=== PATIENT | male | born 1970 | race Caucasian/White ===

== ENCOUNTER 2017-07-30 04:57 | Inpatient (IN) | payer OTHER, MEDICARE ==
[2017-07-30] VITALS (13 sets, daily range): BP systolic 129–162; BP diastolic 69–94; PULSE 82–100; RESP 12–22; TEMP 97.7–99.3; O2SAT 94–100
[2017-07-30] MEDS ORDERED: DIPHTH/TETANUS/ACEL PERTUSSIS (BOOSTER) 0.5 ML VIAL/PFS IM ONE (05:03)
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
[2017-07-30 05:26] LABS: AUTOMATED NEUTROPHIL # 7.7 TH/MM3 (1.8-7.7); BASOPHIL # 0.1 TH/MM3 (0-0.2); BASOPHIL % 0.5 % (0.0-2.0); EOSINOPHIL # 0.3 TH/MM3 (0-0.4); EOSINOPHIL % 2.2 % (0.0-4.0); HEMATOCRIT 46.2 % (39.0-51.0); HEMOGLOBIN 16.2 GM/DL (13.0-17.0); LYMPH % 34.4 % (9.0-44.0); LYMPHOCYTE # 4.8 TH/MM3 (1.0-4.8); MEAN CORPUSCULAR HEMOGLOBIN 32.3 PG (27.0-34.0); MEAN CORPUSCULAR HGB CONC 35.1 % (32.0-36.0); MEAN PLATELET VOLUME 7.7 FL (7.0-11.0); MONO % 7.7 % (0.0-8.0); MONOCYTE # 1.1 TH/MM3 (0-0.9); NEUT % 55.2 % (16.0-70.0); PLATELET COUNT 298 TH/MM3 (150-450); RED BLOOD COUNT 5.02 MIL/MM3 (4.50-5.90); RED CELL DISTRIBUTION WIDTH 13.1 % (11.6-17.2); WHITE BLOOD COUNT 13.9 TH/MM3 (4.0-11.0)
[2017-07-30] MEDS ORDERED: IOHEXOL 350 MG/ML 10 ML VIAL (for RAD DIAG) IVCONTRAST ONE (05:28)
[2017-07-30] MEDS ORDERED: Post-op Orders (for Pharmacy) XX ONE (05:30)
[2017-07-30] MEDS ORDERED: NALOXONE HCL 0.4 MG/ML AMP IV PUSH PRN (05:30)
[2017-07-30] MEDS ORDERED: SODIUM CHLORIDE 0.9% FLUSH 10 ML FLUSH IV FLUSH PRN (05:30)
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
[2017-07-30 05:40] LABS: PROTHROMBIN TIME - PATIENT 10.6 SEC (9.8-11.6)
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
[2017-07-30] MEDS: SODIUM CHLOR 0.9% 1000 ML INJ 1,000 ML IV SCH ×2 (05:47→14:28)
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
[2017-07-30] MEDS ORDERED: LACTULOSE SYRUP 20 GM/30 ML CUP PO PRN (06:45)
[2017-07-30] MEDS ORDERED: MORPHINE SULFATE 4 MG/ML INJ IV PUSH PRN (06:45)
[2017-07-30] MEDS ORDERED: METHOCARBAMOL 500 MG TAB PO SCH (07:00)
[2017-07-30] MEDS: RESP: ALBUTEROL 2.5 MG/IPRATROPIUM 0.5 MG NEB (SCH) NEB ×4 (07:36→20:13)
[2017-07-30] MEDS: ACETAMINOPHEN 1000 MG/100 ML 100 ML IV SCH ×3 (07:43→20:19)
[2017-07-30] MEDS: DOCUSATE SODIUM 50 MG/SENNA 8.6 MG TAB PO SCH ×2 (07:44→20:19)
[2017-07-30] MEDS: SODIUM CHLORIDE 0.9% FLUSH 10 ML FLUSH IV FLUSH SCH ×2 (07:44→20:57)
[2017-07-30] MEDS: FAMOTIDINE 20 MG/2 ML VIAL IV PUSH SCH ×2 (07:44→20:17)
[2017-07-30] MEDS: POLYETHYLENE GLYCOL 17 GM PKG PO SCH (07:44)
[2017-07-30] MEDS: levETIRAcetam INJ 500 MG in SODIUM CHLORIDE 0.9% INJ 100 ML IV SCH ×2 (07:44→20:19)
[2017-07-30] MEDS ORDERED: LIDOCAINE HCL 5% PATCH TD SCH (09:00)
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
[2017-07-30] MEDS ORDERED: LIDOCAINE HCL 5% PATCH T-DERMAL ONE (11:30)
[2017-07-30] MEDS: METOPROLOL TARTRATE 5 MG/5 ML VIAL IV PUSH SCH ×3 (11:35→23:27)
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
[2017-07-30] MEDS: METHOCARBAMOL INJ 1,000 MG in SODIUM CHLOR 0.9% 250 ML INJ 240 ML IV SCH ×2 (14:28→20:19)
[2017-07-30] MEDS: REMOVE OLD PATCH T-DERMAL SCH (20:20)
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
[2017-07-31] VITALS (14 sets, daily range): BP systolic 124–143; BP diastolic 63–79; PULSE 78–103; RESP 8–20; TEMP 98.6–99.6; O2SAT 93–98
[2017-07-31] MEDS: SODIUM CHLOR 0.9% 1000 ML INJ 1,000 ML IV SCH ×3 (00:55→21:21)
[2017-07-31] MEDS: ACETAMINOPHEN 1000 MG/100 ML 100 ML IV SCH (00:55)
[2017-07-31] MEDS: METOPROLOL TARTRATE 5 MG/5 ML VIAL IV PUSH SCH ×4 (05:18→23:53)
[2017-07-31] MEDS: METHOCARBAMOL INJ 1,000 MG in SODIUM CHLOR 0.9% 250 ML INJ 240 ML IV SCH (05:19)
[2017-07-31 05:58] LABS: BASOPHIL # 0.3 TH/MM3 (0-0.2); EOSINOPHIL # 0.1 TH/MM3 (0-0.4); EOSINOPHIL % 0.4 % (0.0-4.0); HEMATOCRIT 42.7 % (39.0-51.0); HEMOGLOBIN 14.9 GM/DL (13.0-17.0); LYMPH % 11.7 % (9.0-44.0); LYMPHOCYTE # 1.5 TH/MM3 (1.0-4.8); MEAN CELL VOLUME 93.2 FL (80.0-100.0); MEAN CORPUSCULAR HEMOGLOBIN 32.4 PG (27.0-34.0); MEAN CORPUSCULAR HGB CONC 34.8 % (32.0-36.0); MEAN PLATELET VOLUME 7.9 FL (7.0-11.0); MONO % 9.7 % (0.0-8.0); MONOCYTE # 1.3 TH/MM3 (0-0.9); NEUT % 76.2 % (16.0-70.0); PLATELET COUNT 223 TH/MM3 (150-450); RED BLOOD COUNT 4.58 MIL/MM3 (4.50-5.90); RED CELL DISTRIBUTION WIDTH 13.3 % (11.6-17.2); WHITE BLOOD COUNT 13.2 TH/MM3 (4.0-11.0)
[2017-07-31 06:08] LABS: BICARBONATE 27.1 MEQ/L (21.0-32.0); CALCIUM 7.6 MG/DL (8.5-10.1); CREATININE 0.76 MG/DL (0.60-1.30)
[2017-07-31] MEDS: RESP: ALBUTEROL 2.5 MG/IPRATROPIUM 0.5 MG NEB (SCH) NEB ×4 (07:35→20:27)
[2017-07-31] MEDS: DOCUSATE SODIUM 50 MG/SENNA 8.6 MG TAB PO SCH ×2 (09:00→20:19)
[2017-07-31] MEDS: SODIUM CHLORIDE 0.9% FLUSH 10 ML FLUSH IV FLUSH SCH ×2 (09:00→20:19)
[2017-07-31] MEDS: POLYETHYLENE GLYCOL 17 GM PKG PO SCH (09:00)
[2017-07-31] MEDS: FAMOTIDINE 20 MG/2 ML VIAL IV PUSH SCH ×2 (09:03→20:18)
[2017-07-31] MEDS: levETIRAcetam INJ 500 MG in SODIUM CHLORIDE 0.9% INJ 100 ML IV SCH ×2 (09:04→20:19)
[2017-07-31] MEDS ORDERED: PNEUMOCOCCAL POLYVALENT INJ 25 MCG/0.5 ML SYR IM ONE (10:00)
[2017-07-31] MEDS ORDERED: INFLUENZA VIRUS VACCINE (QUADRIVALENT) 0.5 ML SYR IM ONE (10:00)
[2017-07-31] MEDS ORDERED: oxyCODONE/ACETAMINOPHEN 10 MG/325 MG TAB PO PRN (10:30)
[2017-07-31] MEDS: ONDANSETRON HCL 4 MG/2 ML VIAL IV PUSH PRN (11:05)
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
[2017-07-31] MEDS: oxyCODONE/ACETAMINOPHEN 5 MG/325 MG TAB PO PRN (13:24)
[2017-07-31] MEDS: METHOCARBAMOL 500 MG TAB PO SCH ×2 (14:15→20:19)
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
[2017-07-31] MEDS: REMOVE OLD PATCH T-DERMAL SCH (21:00)
[2017-08-01] VITALS (13 sets, daily range): BP systolic 104–143; BP diastolic 56–76; PULSE 68–101; RESP 11–23; TEMP 98.3–98.7; O2SAT 93–98
[2017-08-01] MEDS: MORPHINE SULFATE 2 MG/ML INJ IV PUSH PRN ×2 (04:37→10:56)
[2017-08-01] MEDS: ONDANSETRON HCL 4 MG/2 ML VIAL IV PUSH PRN ×2 (04:38→10:56)
--- NOTE | 2017-08-01 04:55 | RADRPT ---
EXAM DATE/TIME: 08/01/2017 04:06 [facility] COMPARISON: CT BRAIN W/O CONTRAST, July 30, 2017, 12:11. INDICATIONS : Follow up traumatic brain injury. RADIATION DOSE: 56.35 CTDIvol (mGy) MEDICAL HISTORY : Non-responsive. SURGICAL HISTORY : Non-responsive. ENCOUNTER: Subsequent ACUITY: 2 days PAIN SCALE: Non-responsive LOCATION: cranial TECHNIQUE: Multiple contiguous axial images were obtained of the head. Using automated exposure control and adj ustment of the mA and/or kV according to patient size, radiation dose was kept as low as reasonably a chievable to obtain optimal diagnostic quality images. DICOM format image data is available electro nically for review and comparison. FINDINGS: The examination is stable. Small one subarachnoid hemorrhage is seen involving the right parietal lob e. Small volume of intraventricular blood on the left atria the lateral ventricle. Hemorrhagic contus ion within the left temporal lobe is stable as well. There is very slight increase in the surrounding edema. No new sources of hemorrhage. No midline shift or herniation. CSF density remains within the suprasellar cistern. Ventricles are normal in size. The fracture through the left mastoid air cells a gain noted. CONCLUSION: 1. The only interval change has been a slight increase in the edema involving the hemorrhagic contusi on involving the left temporal lobe. Otherwise the areas of hemorrhage are stable without signs of mi dline shift or herniation. No new sites of hemorrhage. Erick Vázquez Jr., MD on August 01, 2017 at 4:50 Board Certified Radiologist. This report was verified electronically.
[2017-08-01] MEDS: METOPROLOL TARTRATE 5 MG/5 ML VIAL IV PUSH SCH (06:00)
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
[2017-08-01] MEDS: METHOCARBAMOL 500 MG TAB PO SCH ×3 (06:32→21:18)
[2017-08-01 07:22] LABS: AUTOMATED NEUTROPHIL # 9.8 TH/MM3 (1.8-7.7); BASOPHIL # 0.1 TH/MM3 (0-0.2); BASOPHIL % 0.4 % (0.0-2.0); EOSINOPHIL # 0.1 TH/MM3 (0-0.4); EOSINOPHIL % 0.8 % (0.0-4.0); HEMATOCRIT 41.4 % (39.0-51.0); HEMOGLOBIN 14.6 GM/DL (13.0-17.0); LYMPH % 11.6 % (9.0-44.0); LYMPHOCYTE # 1.5 TH/MM3 (1.0-4.8); MEAN CELL VOLUME 93.7 FL (80.0-100.0); MEAN CORPUSCULAR HEMOGLOBIN 32.9 PG (27.0-34.0); MEAN CORPUSCULAR HGB CONC 35.1 % (32.0-36.0); MEAN PLATELET VOLUME 7.9 FL (7.0-11.0); MONO % 8.9 % (0.0-8.0); MONOCYTE # 1.1 TH/MM3 (0-0.9); NEUT % 78.3 % (16.0-70.0); PLATELET COUNT 225 TH/MM3 (150-450); RED BLOOD COUNT 4.42 MIL/MM3 (4.50-5.90); RED CELL DISTRIBUTION WIDTH 13.4 % (11.6-17.2); WHITE BLOOD COUNT 12.5 TH/MM3 (4.0-11.0)
[2017-08-01 08:01] LABS: ALBUMIN 3.3 GM/DL (3.4-5.0); ALT (GPT) 22 U/L (12-78); AST (GOT) 22 U/L (15-37); BICARBONATE 26.1 MEQ/L (21.0-32.0); CALCIUM 7.7 MG/DL (8.5-10.1); CHLORIDE 103 MEQ/L (98-107); CREATININE 0.83 MG/DL (0.60-1.30); GLOMERULAR FILTRATION RATE 100 ML/MIN (>89); GLUCOSE,RANDOM 105 MG/DL (74-106); SODIUM (NA) 139 MEQ/L (136-145)
[2017-08-01 08:09] LABS: ALKALINE PHOSPHATASE 56 U/L (45-117); BLOOD UREA NITROGEN 9 MG/DL (7-18); TOTAL BILIRUBIN ADULT 0.8 MG/DL (0.2-1.0); TOTAL PROTEIN 6.7 GM/DL (6.4-8.2)
[2017-08-01] MEDS: levETIRAcetam INJ 500 MG in SODIUM CHLORIDE 0.9% INJ 100 ML IV SCH (08:44)
[2017-08-01] MEDS: SODIUM CHLORIDE 0.9% FLUSH 10 ML FLUSH IV FLUSH SCH ×2 (08:45→21:19)
[2017-08-01] MEDS: FAMOTIDINE 20 MG TAB PO SCH ×2 (09:00→21:18)
[2017-08-01] MEDS: LACTULOSE SYRUP 20 GM/30 ML CUP PO SCH (09:00)
[2017-08-01] MEDS: POLYETHYLENE GLYCOL 17 GM PKG PO SCH (09:00)
[2017-08-01] MEDS: DOCUSATE SODIUM 50 MG/SENNA 8.6 MG TAB PO SCH ×2 (09:00→21:18)
[2017-08-01] MEDS: RESP: ALBUTEROL 2.5 MG/IPRATROPIUM 0.5 MG NEB (SCH) NEB ×4 (09:33→19:34)
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
[2017-08-01] MEDS: PROPRANOLOL HCL 10 MG TAB PO SCH ×2 (14:00→21:18)
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
[2017-08-01] MEDS: oxyCODONE/ACETAMINOPHEN 5 MG/325 MG TAB PO PRN (17:13)
[2017-08-01] MEDS: REMOVE OLD PATCH T-DERMAL SCH (21:00)
[2017-08-01] MEDS: levETIRAcetam 500 MG TAB PO SCH (21:18)
[2017-08-02] VITALS: BP 150/61; PULSE 90; RESP 18; TEMP 99.3; O2SAT 93
[2017-08-02 04:00] VITALS: BP 140/64; PULSE 85; RESP 18; TEMP 98.6; O2SAT 94
[2017-08-02] MEDS: METHOCARBAMOL 500 MG TAB PO SCH ×3 (06:08→21:13)
[2017-08-02] MEDS: PROPRANOLOL HCL 10 MG TAB PO SCH ×3 (06:09→21:13)
[2017-08-02 06:49] LABS: AUTOMATED NEUTROPHIL # 10.9 TH/MM3 (1.8-7.7); BASOPHIL # 0.1 TH/MM3 (0-0.2); BASOPHIL % 0.5 % (0.0-2.0); EOSINOPHIL # 0.5 TH/MM3 (0-0.4); EOSINOPHIL % 3.4 % (0.0-4.0); HEMOGLOBIN 15.4 GM/DL (13.0-17.0); LYMPHOCYTE # 1.3 TH/MM3 (1.0-4.8); MEAN CELL VOLUME 92.5 FL (80.0-100.0); MEAN CORPUSCULAR HEMOGLOBIN 32.4 PG (27.0-34.0); MEAN CORPUSCULAR HGB CONC 35.1 % (32.0-36.0); MEAN PLATELET VOLUME 8.2 FL (7.0-11.0); MONO % 9.1 % (0.0-8.0); MONOCYTE # 1.3 TH/MM3 (0-0.9); PLATELET COUNT 243 TH/MM3 (150-450); RED BLOOD COUNT 4.76 MIL/MM3 (4.50-5.90); RED CELL DISTRIBUTION WIDTH 13.3 % (11.6-17.2)
[2017-08-02 07:25] LABS: ALBUMIN 3.3 GM/DL (3.4-5.0); ALKALINE PHOSPHATASE 57 U/L (45-117); ALT (GPT) 26 U/L (12-78); AST (GOT) 29 U/L (15-37); BLOOD UREA NITROGEN 12 MG/DL (7-18); CHLORIDE 102 MEQ/L (98-107); CREATININE 0.81 MG/DL (0.60-1.30); GLOMERULAR FILTRATION RATE 103 ML/MIN (>89); GLUCOSE,RANDOM 104 MG/DL (74-106); SODIUM (NA) 138 MEQ/L (136-145); TOTAL BILIRUBIN ADULT 0.7 MG/DL (0.2-1.0); TOTAL PROTEIN 7.4 GM/DL (6.4-8.2)
--- NOTE | 2017-08-02 07:27 | RADRPT ---
EXAM DATE/TIME: 08/02/2017 06:19 [facility] COMPARISON: CHEST SINGLE AP, August 01, 2017, 5:14. INDICATIONS : Left chest pain. Trauma. MEDICAL HISTORY : None. SURGICAL HISTORY : None. ENCOUNTER: Initial ACUITY: 1 day PAIN SCORE: 6/10 LOCATION: Left chest FINDINGS: Lung bases are hypoaerated with some mild bibasilar atelectasis. Heart and mediastinal structures are stable. Fractured left clavicle and and left seventh rib are noted. CONCLUSION: 1. Left seventh rib fracture. 2. Fractured left clavicle. 3. Mild basilar atelectasis. Heber Butler MD on August 02, 2017 at 7:24 Board Certified Radiologist. This report was verified electronically.
[2017-08-02 08:00] VITALS: BP 120/70; PULSE 79; RESP 16; TEMP 98.4; O2SAT 96
[2017-08-02] MEDS ORDERED: MILKSUS PO (08:54)
[2017-08-02] MEDS ORDERED: PERI PO (08:54)
[2017-08-02] MEDS: levETIRAcetam 500 MG TAB PO SCH ×2 (09:07→19:58)
[2017-08-02] MEDS: POLYETHYLENE GLYCOL 17 GM PKG PO SCH (09:07)
[2017-08-02] MEDS: FAMOTIDINE 20 MG TAB PO SCH ×2 (09:07→19:59)
[2017-08-02] MEDS: LACTULOSE SYRUP 20 GM/30 ML CUP PO SCH (09:07)
[2017-08-02] MEDS: DOCUSATE SODIUM 50 MG/SENNA 8.6 MG TAB PO SCH ×2 (09:07→19:58)
[2017-08-02] MEDS: SODIUM CHLORIDE 0.9% FLUSH 10 ML FLUSH IV FLUSH SCH ×2 (09:08→21:00)
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
[2017-08-02 12:00] VITALS: BP 134/58; PULSE 87; RESP 16; TEMP 98.1; O2SAT 95
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
[2017-08-02] MEDS ORDERED: ENOXAPARIN SODIUM 40 MG/0.4 ML SYRINGE SQ SCH (13:00)
[2017-08-02] MEDS: RESP: ALBUTEROL 2.5 MG/IPRATROPIUM 0.5 MG NEB (SCH) NEB ×2 (15:54→19:28)
[2017-08-02 16:00] VITALS: BP 129/74; PULSE 86; RESP 16; TEMP 99.5; O2SAT 93
[2017-08-02 20:03] VITALS: BP 125/79; PULSE 77; RESP 18; TEMP 97.2; O2SAT 95
[2017-08-02] MEDS: REMOVE OLD PATCH T-DERMAL SCH (21:00)
[2017-08-03] VITALS: BP 119/83; PULSE 78; RESP 16; TEMP 98.2; O2SAT 95
[2017-08-03 04:00] VITALS: BP 158/72; PULSE 71; RESP 18; TEMP 98; O2SAT 95
[2017-08-03 04:51] LABS: AUTOMATED NEUTROPHIL # 8.2 TH/MM3 (1.8-7.7); BASOPHIL # 0.1 TH/MM3 (0-0.2); BASOPHIL % 0.5 % (0.0-2.0); EOSINOPHIL # 0.4 TH/MM3 (0-0.4); EOSINOPHIL % 3.1 % (0.0-4.0); HEMATOCRIT 44.9 % (39.0-51.0); HEMOGLOBIN 15.8 GM/DL (13.0-17.0); LYMPH % 15.6 % (9.0-44.0); LYMPHOCYTE # 1.9 TH/MM3 (1.0-4.8); MEAN CELL VOLUME 92.3 FL (80.0-100.0); MEAN CORPUSCULAR HEMOGLOBIN 32.5 PG (27.0-34.0); MEAN CORPUSCULAR HGB CONC 35.2 % (32.0-36.0); MEAN PLATELET VOLUME 7.9 FL (7.0-11.0); MONO % 13.6 % (0.0-8.0); MONOCYTE # 1.7 TH/MM3 (0-0.9); NEUT % 67.2 % (16.0-70.0); PLATELET COUNT 256 TH/MM3 (150-450); RED BLOOD COUNT 4.87 MIL/MM3 (4.50-5.90); RED CELL DISTRIBUTION WIDTH 13.4 % (11.6-17.2); WHITE BLOOD COUNT 12.2 TH/MM3 (4.0-11.0)
[2017-08-03 05:15] LABS: ALBUMIN 3.2 GM/DL (3.4-5.0); AST (GOT) 25 U/L (15-37); BICARBONATE 27.8 MEQ/L (21.0-32.0); BLOOD UREA NITROGEN 14 MG/DL (7-18); CALCIUM 8.5 MG/DL (8.5-10.1); CHLORIDE 102 MEQ/L (98-107); CREATININE 0.81 MG/DL (0.60-1.30); GLOMERULAR FILTRATION RATE 103 ML/MIN (>89); GLUCOSE,RANDOM 106 MG/DL (74-106); SODIUM (NA) 140 MEQ/L (136-145)
[2017-08-03 05:19] LABS: ALKALINE PHOSPHATASE 50 U/L (45-117); ALT (GPT) 33 U/L (12-78); TOTAL BILIRUBIN ADULT 0.9 MG/DL (0.2-1.0); TOTAL PROTEIN 7.1 GM/DL (6.4-8.2)
[2017-08-03] MEDS: PROPRANOLOL HCL 10 MG TAB PO SCH (05:59)
[2017-08-03] MEDS: METHOCARBAMOL 500 MG TAB PO SCH (05:59)
[2017-08-03] MEDS ORDERED: LEVE500 PO (07:36)
[2017-08-03] MEDS ORDERED: METH500T3 PO (07:36)
[2017-08-03 08:00] VITALS: BP 141/85; PULSE 78; RESP 17; TEMP 97.7; O2SAT 96
[2017-08-03] MEDS: SODIUM CHLORIDE 0.9% FLUSH 10 ML FLUSH IV FLUSH SCH (09:00)
[2017-08-03] MEDS: levETIRAcetam 500 MG TAB PO SCH (09:17)
[2017-08-03] MEDS: FAMOTIDINE 20 MG TAB PO SCH (09:17)
[2017-08-03] MEDS: POLYETHYLENE GLYCOL 17 GM PKG PO SCH (09:17)
[2017-08-03] MEDS: DOCUSATE SODIUM 50 MG/SENNA 8.6 MG TAB PO SCH (09:18)
[2017-08-03] MEDS: LACTULOSE SYRUP 20 GM/30 ML CUP PO SCH (09:18)
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
[2017-08-03 12:00] VITALS: BP 127/74; PULSE 85; RESP 17; TEMP 98.6; O2SAT 96
[2017-08-03] MEDS ORDERED: OXYC1TAB63 PO (12:22)
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
== END 2017-08-03 14:52 | disposition home or self-care (01) | DRG 964 ==
LOC: NEPI 04:57 → NEDA 05:35 → EDBD 05:35 → N03B 05:56 → N05A 08-01 17:02
PROVIDERS: ADMIT Surgery; ATTEND Surgery
DX: S06.6X9A Traumatic subarachnoid hemorrhage with loss of consciousness of unspecified duration, initial encounter (principal); S27.321A Contusion of lung, unilateral, initial encounter; S22.42XA Multiple fractures of ribs, left side, initial encounter for closed fracture; S02.19XA Other fracture of base of skull, initial encounter for closed fracture; S42.002A Fracture of unspecified part of left clavicle, initial encounter for closed fracture; S42.022A Displaced fracture of shaft of left clavicle, initial encounter for closed fracture; V87.8XXA Person injured in other specified noncollision transport accidents involving motor vehicle (traffic), initial encounter; R40.2431 Glasgow coma scale score 3-8, in the field [EMT or ambulance]; F10.129 Alcohol abuse with intoxication, unspecified; Y90.7 Blood alcohol level of 200-239 mg/100 ml; Z23 Encounter for immunization
CPT/HCPCS: 70450; 70486; 71045; 71260; 72125; 72170; 73560; 74177; 80048; 80053; 80307; 85025; 85610; 85730; 86850; 86900; 86901; 87641; 90686; 90715; 90732; 94150; 94640; 94664; 94667; 94668; 99291; G0390; J0131; J1650; J1953; J2270; J2405; J2800; J3010; J7030; J7050; Q2038; Q9967